=== PATIENT | female | born 1960 | race Caucasian/White ===

== ENCOUNTER 2021-09-10 08:34 | Day surgery (SDC) | payer BC ==
[2021-09-10] MEDS ORDERED: fentaNYL 100 MCG/2 ML SDV ONE (08:50)
[2021-09-10] MEDS ORDERED: Propofol 200 MG/20 ML SDV ONE (08:50)
[2021-09-10] MEDS ORDERED: Midazolam 1 MG/ML 2 ML SDV ONE (08:50)
[2021-09-10] MEDS: Sodium Chloride 0.9% 1,000 ML IV SCH (09:14)
--- NOTE | 2021-09-11 09:11 | OR ---
DATE OF PROCEDURE: 09/10/2021 SURGEON: Darren Hudson MD PROCEDURE: Colonoscopy. FINDINGS: Sigmoid colon polyp, approximately 8 mm, completely removed using hot snare wire device. COMPLICATION: None. DIGITAL PRODUCTION OPERATOR: None. ANESTHESIA: MAC. PREOPERATIVE DIAGNOSIS: Screening colonoscopy. POSTOPERATIVE DIAGNOSIS: Screening colonoscopy. RISKS: Risks, benefits, alternatives, and limitations including, but not limited to infection, bleeding, perforation, false positives, false negatives were explained to the patient and they wished to proceed. PROCEDURE IN DETAIL: The patient was placed in left lateral decubitus position. Digital rectal exam was performed without abnormalities. The scope was introduced and advanced atraumatically to the ileocecal valve. A photo was taken. The scope was brought back to the ascending, transverse, descending colon, and retroflexed. The aforementioned polyp was identified and completely removed using hot snare wire device. No abnormalities on retroflexion. Greater than 8 minutes was spent removing the scope. Prep was acceptable, approximately 90% luminal surface could be seen. The patient tolerated procedure well. aDrren Hudson MD /[id number]
== END 2021-09-10 11:48 | disposition home or self-care (01) ==
LOC: JP.SDS 08:34
PROVIDERS: ATTEND Surgery
DX: Z12.11 Encounter for screening for malignant neoplasm of colon (principal); D12.5 Benign neoplasm of sigmoid colon; E11.9 Type 2 diabetes mellitus without complications
CPT/HCPCS: 45385; J2250; J2704; J3010; J7030

== ENCOUNTER 2024-10-13 07:33 | Day surgery (SDC) | payer BC, MEDICARE ==
[2024-10-13] MEDS ORDERED: Propofol 200 MG/20 ML SDV ONE (07:48)
[2024-10-13] MEDS ORDERED: fentaNYL 50 MCG/ML SDV ONE (07:48)
[2024-10-13] MEDS ORDERED: Midazolam 1 MG/ML 2 ML SDV ONE (07:48)
[2024-10-13] MEDS: Lactated Ringers 1,000 ML IV SCH (08:26)
== END 2024-10-13 11:05 | disposition home or self-care (01) ==
LOC: JP.SDS 07:33
PROVIDERS: ATTEND Surgery
DX: Z12.11 Encounter for screening for malignant neoplasm of colon (principal); K21.9 Gastro-esophageal reflux disease without esophagitis; E11.9 Type 2 diabetes mellitus without complications; Z86.0100 Personal history of colon polyps, unspecified
CPT/HCPCS: 00812-QZ; J2250; J2704; J3010; J7120